=== PATIENT | female | born 1980 | race Caucasian/White ===

== ENCOUNTER 2017-01-02 17:03 | Inpatient (IN) | payer BC ==
[2017-01-02] MEDS ORDERED: Labetalol IV* 5 MG/ML 20 ML VIAL ONE (17:26)
[2017-01-02] MEDS ORDERED: Labetalol IV* 5 MG/ML 20 ML VIAL IV PUSH ONE (17:31)
[2017-01-02] MEDS ORDERED: Labetalol IV* 200 MG in NS 0.9% 250 ML* 160 ML IVPB ONE (17:31)
[2017-01-02 17:53] LABS: Hematocrit 46 % (35-47); Hemoglobin 15.9 g/dl (12.0-16.0); Mean Corpuscular HGB Conc 34 g/dl (31-36); Mean Corpuscular Hemoglobin 34 pg (27-31); Mean Corpuscular Volume 99 fL (80-97); Mean Platelet Volume 9 um3 (7.4-10.4); Red Blood Count 4.68 10^6/ul (4.0-5.4); Red Cell Distribution Width 14 % (10.5-15); White Blood Count 12.2 10^3/ul (3.5-10.8)
[2017-01-02 18:10] LABS: ALT 18 U/L (7-52); AST 24 U/L (13-39); Albumin 4.3 g/dL (3.2-5.2); Alkaline Phosphatase 74 U/L (34-104); Anion Gap 9 mmol/L (2-11); BUN/Creatinine Ratio 10.2 (8-20); Blood Urea Nitrogen 16 mg/dL (6-24); CO2 Carbon Dioxide 27 mmol/L (22-32); Calcium 9.2 mg/dL (8.6-10.3); Chloride 101 mmol/L (101-111); EGFR African American 47.7 (>60); EGFR Non-African American 37.1 (>60); Glucose 98 mg/dL (70-100); Sodium 137 mmol/L (133-145); Total Protein 7.3 g/dL (6.4-8.9)
[2017-01-02] MEDS ORDERED: Potassium Chloride LIQUID* 20 MEQ PACKET PO ONE (18:20)
[2017-01-02 18:32] LABS: T4 6.21 mcg/mL (6.09-12.23)
[2017-01-02 18:33] LABS: TSH (Thyroid Stimulating Horm) 4.05 mcIU/mL (0.34-5.60)
--- NOTE | 2017-01-02 18:33 | RAD ---
INDICATION: Hypertensive crisis COMPARISON: None. TECHNIQUE: Single AP portable view of the chest was obtained. FINDINGS: Image quality is compromised due to the relative inferiority of a portable chest x-ray. The heart and mediastinum exhibit normal size and contour. The lungs are grossly clear. There is no evidence of a large pleural effusion. Visualized bones are normal for the patient's age. IMPRESSION: No radiographic evidence for acute cardiopulmonary abnormality on this portable chest x-ray.
[2017-01-02] MEDS ORDERED: Acetaminophen TAB* 325 MG PO PRN ×2 (18:35→19:53)
[2017-01-02] MEDS ORDERED: Ondansetron INJ* 2 MG/ML VIAL IV PRN (18:35)
[2017-01-02 19:23] LABS: Troponin I 0.07 ng/mL (<0.04)
[2017-01-02] MEDS ORDERED: amLODIPine TAB* 5 MG PO ONE (20:21)
[2017-01-02] MEDS ORDERED: Metoprolol Tartrate TAB* 25 MG PO SCH (21:00)
--- NOTE | 2017-01-02 21:16 | HP ---
CC: Dr. Mcallister * HOSPITAL MEDICINE HISTORY AND PHYSICAL: DATE OF ADMISSION: 01/02/17 PRIMARY CARE PHYSICIAN: Dr. Mcallister. ATTENDING PHYSICIAN: Dr. Cody Mcbride * (dictation provided by Huong Landa NP ). CHIEF COMPLAINT: Visual changes and elevated blood pressure. HISTORY OF PRESENT ILLNESS: Ms. Summers is a 36-year-old female with no known past medical history as she does not follow with doctors, who presents today to the hospital from her primary care's office with concern for profoundly elevated blood pressure. Ms. Summers states that she has had deteriorating vision for the past couple of years and has avoided having her eyes checked; however, she recently decided that she should get new glasses and had scheduled an appointment. In the intervening time over the past 2 to 3 days, she has noticed more profound vision impairment with floaters in both eyes and a red spot in her left eye. She saw an opthamologist or building repair maintenance supervisor on Saturday and was told her that she had retinal hemorrhages and was strongly encouraged to immediately follow up with a primary care physician. The patient was arranged to see Dr. Mcallister today and while there she had dramatically elevated blood pressure at 240/180. At that point, she was complaining of a headache and she was transitioned to [facility] Emergency Room. In the emergency room, her blood pressure was 238/182 with heart rate running in the 80s. At this point, she is asymptomatic and is denying headache. She denies any other symptoms. She has had no unusual sweating or palpitations. She has had no chest pain. No shortness of breath. No cough. No nausea, no vomiting or abdominal pain. She confirms that she could easily ambulate up a flight of stairs. She does not exercise regularly. She is a chronic smoker, smoking 1 pack per day. She does not know of any history of significant hypertension or kidney disease in her family. PAST MEDICAL HISTORY: None. MEDICATIONS: None. ALLERGIES: None. FAMILY HISTORY: The patient again reports no history of hypertension, diabetes or kidney disease in the family. SOCIAL HISTORY: The patient is a pack-a-day smoker and has been for some time. She drinks alcohol on a daily basis. She said she has never had trouble with alcohol withdrawal. There is no report of drug use. She states that her friend , Saray, would be her healthcare proxy. REVIEW OF SYSTEMS: A 14-point review of systems was completed with Ms. Summers , and all those not mentioned above were negative. PHYSICAL EXAMINATION GENERAL: Ms. Summers is lying in the bed. She is in no acute distress. VITAL SIGNS: Temperature 97, heart rate 88, respiratory rate 19, O2 saturation 98% on room air, blood pressure 240/156. HEENT: Pupils equal and reactive. Retinal hemorrhage noted in left eye. Neck supple, no thyromegaly. LUNGS: Clear to auscultation bilaterally with no accessory muscle use and good aeration. HEART: S1, S2. No murmur, rub, or gallop, and regular. ABDOMEN: Soft, nontender with bowel sounds positive x4. EXTREMITIES: No cyanosis or edema. NEURO: She is alert. She is oriented x3. She moves all extremities equally. There is no facial asymmetry or focal weakness. Her extraocular movements are intact. SKIN: Intact. DIAGNOSTIC STUDIES/LAB DATA: WBC 12.2, hemoglobin 15.9, hematocrit 46, and platelet count 129. Sodium 137, potassium 3.0, chloride 101, serum bicarbonate 27, BUN 16, creatinine 1.57, glucose 98. Troponin 0.07. Beta HCG less than 0.6. TSH 4.05. Chest x-ray shows no acute process. EKG shows heart rate in the 80s with a sinus rhythm and no evidence of current ischemia; however, she she does have Q waves in II, III, aVF, and in the V2 and V3. ASSESSMENT AND PLAN: Ms. Summers is a 36-year-old female with no known past medical history as she has not followed regularly with medical care presents to the hospital with dramatically elevated blood pressure of 280/180 at her primary care's office, and retinal hemorrhages and headache. Plans are for inpatient admission for hypertensive emergency and plan is as follows: 1. Hypertensive emergency. The patient has been started on labetalol in the emergency room. We will continue to titrate that as needed to control her blood pressure. Goal is to have her blood pressure running about 180 through the evening. Plan to start an oral medication regimen with amlodipine. In terms of determining the etiology of her hypertension, I plan to order a renal artery ultrasound though this may be deferred to the outpatient setting. I do not suspect pheochromocytoma based on patient's denial of symptoms of palpitations or unusual episodes of diaphoresis. 2. Elevated troponin. I suspect this is secondary to her dramatically elevated blood pressure. I am concerned that she has Q waves noted on her EKG. Plan for transthoracic echocardiogram for tomorrow. The patient is chest pain free at this time. She will have repeat troponins and telemetry monitoring as well. 3. Elevated creatinine. The patient's creatinine is 1.57. I suspect that she has an element of chronic kidney disease. Plan to recheck creatinine tomorrow. 4. DVT prophylaxis. With early mobility. 5. Disposition. To intensive care unit. 6. Code status is full code. TIME SPENT: Approximately 60 minutes was spent on admission of this patient; more than half time was spent with the patient at the bedside reviewing the events leading up to this hospitalization, performing the physical examination, and reviewing the plan of care. HUONG LANDA NP [id number]/[facility] #: [id number] RUBY
[2017-01-03 05:04] LABS: Urine Bacteria 1+ (Absent); Urine Bilirubin Negative (Negative); Urine Glucose 1+(50 mg/dL) (Negative); Urine Nitrite Negative (Negative)
[2017-01-03 05:41] LABS: BUN/Creatinine Ratio 9.5 (8-20); Calcium 8.4 mg/dL (8.6-10.3); EGFR African American 51.4 (>60); Potassium 3.5 mmol/L (3.5-5.0)
[2017-01-03 05:44] LABS: Troponin I 0.06 ng/mL (<0.04)
[2017-01-03] MEDS ORDERED: Levothyroxine TAB* 75 MCG TAB PO SCH (06:00)
[2017-01-03] MEDS ORDERED: Aspirin EC Low Dose* 81 MG TAB.EC PO SCH (09:00)
[2017-01-03] MEDS ORDERED: Cholecalciferol TAB* 1000 UNITS PO SCH (09:00)
[2017-01-03] MEDS: amLODIPine TAB* 5 MG PO SCH (09:10)
--- NOTE | 2017-01-03 10:52 | ECHO ---
Patient: EDDIE TAYLOR [facility] Rec#: [id number] : 1980 Date: 01/03/2017 Age: 36y Height: 160 cm / 63.0 in Weight: 75 kg / 165.3 lbs Sex: F BSA: 1.78 Room#: ICU 5 Admit Date#: 01/02/2017 Type: Inpatient Referring: Huong Landa NP Reading: Parmjit Luis MD Lead Printer: Chasity Nelson RN RDCS CC: Yana Mcallister MD Transthoracic Echocardiogram Indication: Hypertensive crisis, abnormal EKG BP: 161/109 HR: 71 Rhythm: NSR Findings History: Smoker, retinal hemorrhages Technical Comments: The study is technically limited due to patient body habitus. The study is technically limited due to the patient's smoking history. Left Ventricle: The left ventricular chamber size is normal. Severe concentric left ventricular hypertrophy is observed. Global left ventricular wall motion and contractility are within normal limits.(possible subtle hypokinesis of the inferior wall in the apical views but not seen elsewhere; may be artifactual due to suboptimal imaging). There is normal left ventricular systolic function. The estimated ejection fraction is 60-65%. The left ventricular diastolic filling pattern is consistent with pseudonormalization. Left Atrium: The left atrium is mildly dilated. Right Ventricle: The right ventricular chamber size and systolic function are within normal limits. Right Atrium: The right atrium is mildly dilated. Aortic Valve: The aortic valve is trileaflet. There is a trace of aortic regurgitation. There is no evidence of aortic stenosis. Mitral Valve: The mitral valve leaflets are mildly thickened. There is trace to mild mitral regurgitation. There is no evidence of mitral stenosis. Tricuspid Valve: The tricuspid valve leaflets are normal. There is trace to mild tricuspid regurgitation. Unable to estimate the right ventricular systolic pressure. Pulmonic Valve: The pulmonic valve appears normal. There is a trace pulmonic regurgitation. There is no pulmonic stenosis. Pericardium: There is no significant pericardial effusion. A pericardial fat pad is visualized. Aorta: There is no dilatation of the ascending aorta. There is no dilatation of the aortic arch. There is no dilation of the aortic root. Pulmonary Artery: The main pulmonary artery appears normal. Venous: The inferior vena cava appears normal in size. There is a greater than 50% respiratory change in the inferior vena cava dimension. Summary: There was not any prior study for comparison. Conclusions The study is technically limited due to patient body habitus. Severe concentric left ventricular hypertrophy is observed. The estimated ejection fraction is 60-65%. (possible subtle hypokinesis of the inferior wall in the apical views but not seen elsewhere; may be artifactual due to suboptimal imaging). The left ventricular diastolic filling pattern is consistent with pseudonormalization. The left atrium is mildly dilated. The aortic valve leaflets are mildly thickened. There is a trace of aortic regurgitation. There is trace to mild mitral regurgitation. There is trace to mild tricuspid regurgitation. Measurements Name Value Normal Range RVIDd (AP) 2D 2 cm (0.9 - 2.6) RVDdMajor (2D) 2.3 cm (2.2 - 4.4) RAd ISD 4CH 5.3 cm (3.4 - 4.9) RA (A4C)W 3.5 cm (2.9 - 4.6) IVSd (2D) 1.8 cm (0.6 - 1) LVPWd (2D) 1.8 cm (0.6 - 1) LVIDd (2D) 3.9 cm (3.6 - 5.4) LVIDs (2D) 2.6 cm - LV FS (2D) 33 % (25 - 45) Aortic Annulus 2.2 cm (1.4 - 2.6) Ao root diameter (2D) 3.2 cm (2.1 - 3.5) Ascending Ao 3.3 cm (2.1 - 3.4) Aortic arch 2.2 cm (1.8 - 3.4) LA dimension (AP) 2D 4.4 cm (2.3 - 3.8) LAd ISD 4CH 5.8 cm (2.9 - 5.3) LA ISD 4CH W 4.3 cm (2.5 - 4.5) Name Value Normal Range LA ESV SP 4CH (A/L) 56 ml - LA ESV SP 2CH (A/L) 64 ml - LA ESV BP (A/L) 65 ml - LA ESV BP (A/L) index 37 ml/m2 - LA ESV SP 4CH (MOD) 54 ml - LA ESV SP 2CH (MOD) 61 ml - Name Value Normal Range MV E-wave Vmax 0.67 m/sec - MV deceleration time 253 msec - MV A-wave Vmax 0.49 m/sec - MV E:A ratio 1.4 ratio - LV septal e' Vmax 0.05 m/sec - LV lateral e' Vmax 0.05 m/sec - LV E:e' septal ratio 13.4 ratio - LV E:e' lateral ratio 13.4 ratio - Name Value Normal Range AV Vmax 1.4 m/sec - AV VTI 27.4 cm - AV peak gradient 8 mmHg - AV mean gradient 5 mmHg - LVOT Vmax 1.3 m/sec - LVOT VTI 20.1 cm - LVOT peak gradient 4 mmHg - LVOT mean gradient 2.5 mmHg - NORBERTO Vmax 0.8 m/sec - Name Value Normal Range IVC diameter 1.9 cm - Name Value Normal Range PV Vmax 0.78 m/sec -
--- NOTE | 2017-01-03 11:28 | PN ---
Subjective Date of Service: 01/03/17 Interval History: Patient seen this morning. Reports feeling better overall. Still with some vision changes ("squiggles"), no chest pain, SOB. Dull headache. Overnight had 2 episodes of L facial and arm tingling that lasted a few minutes, associated with lower BPs. No recurrence since. Family History: Unchanged from Admission Social History: Unchanged from Admission Past Medical History: Unchanged from Admission Objective Active Medications: Acetaminophen (Tylenol Tab*) 650 mg PO Q4H PRN PRN Reason: PAIN Last Admin: 01/02/17 23:59 Dose: 650 mg Amlodipine Besylate (Norvasc Tab*) 5 mg PO DAILY AARON Last Admin: 01/03/17 09:10 Dose: 5 mg Labetalol HCl 200 mg/ Sodium (Chloride) 200 mls @ 30 mls/hr IVPB ONCE ONE PRN Reason: 0.5 MG/MIN Stop: 01/04/17 03:25 Ondansetron HCl (Zofran Inj*) 4 mg IV Q6H PRN PRN Reason: NAUSEA Vital Signs 01/02/17 01/02/17 01/02/17 18:30 19:00 19:30 Temperature Pulse Rate 88 85 86 Respiratory 19 18 16 Rate Blood Pressure 240/156 214/150 206/150 (mmHg) O2 Sat by Pulse 98 98 98 Oximetry 01/03/17 01/03/17 01/03/17 04:00 04:01 04:30 Temperature Pulse Rate 62 65 75 Respiratory 16 17 19 Rate Blood Pressure 132/85 140/98 (mmHg) O2 Sat by Pulse 96 95 96 Oximetry 01/03/17 01/03/17 11:00 11:01 Temperature Pulse Rate 68 68 Respiratory 12 9 Rate Blood Pressure 185/122 (mmHg) O2 Sat by Pulse 97 96 Oximetry Oxygen Devices in Use Now: None Appearance: Young, F, laying in bed in NAD Eyes: No Scleral Icterus Ears/Nose/Mouth/Throat: Mucous Membranes Moist Neck: NL Appearance and Movements; NL JVP Respiratory: Symmetrical Chest Expansion and Respiratory Effort, Clear to Auscultation Cardiovascular: NL Sounds; No Murmurs; No JVD, RRR Abdominal: NL Sounds; No Tenderness; No Distention Lymphatic: No Cervical Adenopathy Extremities: No Edema Skin: No Rash or Ulcers Neurological: Alert and Oriented x 3 Result Diagrams: 01/02/17 17:25 01/03/17 05:10 Microbiology and Other Data: Microbiology 01/02/17 20:10 Nasal Screen MRSA (PCR)(EKATERINA) - Final Nasal Mrsa Negative Assess/Plan/Problems-Billing Assessment: Hypertensive emergency in a 36 yo F - Patient Problems (1) Hypertensive emergency Current Visit: Yes Comment: Goal BP ~ 180-190/100-110 by this evening. Off of Labtelol gtt, on oral Amlodipine 5 mg daily. Had some neuro symptoms with lower BPs overnight. Will check head CT. Echo showed severe LVH, no clear WMAs. Mild troponinemia trending down. (2) Renal dysfunction Current Visit: Yes Comment: Creatinine elevated, may be result of chronic untreated HTN. (3) DVT prophylaxis Current Visit: Yes Comment: SCDs Status and Disposition: Inpatient for close BP monitoring
--- NOTE | 2017-01-03 12:43 | RAD ---
HISTORY: Hypertensive emergency, headache, question stroke COMPARISONS: None TECHNIQUE: Multiple contiguous axial CT scans were obtained of the head without intravenous contrast. FINDINGS: HEMORRHAGE/INFARCT: There is no hemorrhage or acute infarct. MASSES/SHIFT: There is no mass or shift. EXTRA-AXIAL SPACES: There are no extra-axial fluid collections. SULCI AND VENTRICLES: The sulci and ventricles are normal in size and position for the patient's stated age. CEREBRUM: There are no focal parenchymal abnormalities. BRAINSTEM: There are no focal parenchymal abnormalities. CEREBELLUM: There are no focal parenchymal abnormalities. VESSELS: The vessels are grossly normal. PARANASAL SINUSES: The paranasal sinuses are clear. ORBITS: The orbits are unremarkable. BONES AND SOFT TISSUE: No bone or soft tissue abnormalities are noted. OTHER: None IMPRESSION: NO ACUTE INTRACRANIAL PATHOLOGY.
--- NOTE | 2017-01-03 16:06 | ED ---
Cathleen Reid Alfonso, scribed for Fernandez Valencia MD on 01/02/17 at 1802 . Complex/Multi-Sys Presentation - HPI Summary HPI Summary: This patient is a 36 year old F presenting to [facility] referred from her PCP for a hypertensive crisis noted earlier today. The patient rates the aching pain 4/10 in severity. Symptoms aggravated and alleviated by nothing. Patient reports worsening eye sight (over the last two years), orange spot in vision (3 days ago ), and a headache. Patient denies CP, SOB, tiredness, and hot flashes. She reports not consulting a primary care physician in many years. She reports yesterday an inbound call center representative diagnosed her with retinal hemorrhages. Tobacco abuse disorder (/ PPD). - History Of Current Complaint Chief Complaint: EDHypertension Time Seen by Provider: 01/02/17 17:31 Hx Obtained From: Patient Onset/Duration: Sudden Onset, Lasting Days - Noted earlier today, Still Present Timing: Constant Severity Currently: Moderate Severity Initially: Moderate Character: Dull - Aching Aggravating Factor(s): Nothing Alleviating Factor(s): Nothing Associated Signs And Symptoms: Positive: Other - Patient reports worsening eye sight (over the last two years), orange spot in vision (3 days ago), and a headache. Patient denies CP, SOB, tiredness, and hot flashes. - Allergies/Home Medications Allergies/Adverse Reactions: Allergies Allergy/AdvReac Type Severity Reaction Status Date / Time No Known Allergies Allergy Verified 01/02/17 17:46 PMH/Surg Hx/FS Hx/Imm Hx Sensory History: Reports: Other Sensory Impairments - retinal hemorrhages Denies: Hx Deafness Opthamlomology History: Denies: Hx Legally Blind Infectious Disease History: No Infectious Disease History: Denies: Traveled Outside the [place] in Last 30 Days - Family History Known Family History: Negative: Cardiac Disease - Social History Alcohol Use: Occasionally Substance Use Type: Reports: None Smoking Status (MU): Current Every Day Smoker - 1/2 PPD Review of Systems Positive: Other - Negative hot flashes. Positive: Other - Positive worsening eye sight (over the last two years), orange spot in vision (3 days ago) Positive: Other - Positive hypertensive crisis. Negative: Chest Pain Negative: Shortness Of Breath Neurological: Other - Positive headache; negative tiredness All Other Systems Reviewed And Are Negative: Yes Physical Exam - Summary Physical Exam Summary: VITAL SIGNS: Reviewed. GENERAL: Patient is a well-developed and nourished female who is lying comfortable in the stretcher. Patient is not in any acute respiratory distress. HEAD AND FACE: No signs of trauma. No ecchymosis, hematomas or skull depressions. No sinus tenderness. EYES: PERRLA, EOMI x 2, No injected conjunctiva, no nystagmus. Fundoscopic exam : left eye retinal hemorrhage. EARS: Hearing grossly intact. Ear canals and tympanic membranes are within normal limits. MOUTH: Oropharynx within normal limits. NECK: Supple, trachea is midline, no adenopathy, no JVD, no carotid bruit, no c- spine tenderness, neck with full ROM. CHEST: Symmetric, no tenderness at palpation LUNGS: Clear to auscultation bilaterally. No wheezing or crackles. CVS: Regular rate and rhythm, S1 and S2 present, no murmurs or gallops appreciated. ABDOMEN: Soft, non-tender. No signs of distention. No rebound no guarding, and no masses palpated. Bowel sounds are normal. EXTREMITIES: FROM in all major joints, no edema, no cyanosis or clubbing. NEURO: Alert and oriented x 3. No acute neurological deficits. Speech is normal and follows commands. SKIN: Dry and warm Triage Information Reviewed: Yes Vital Signs On Initial Exam: Initial Vitals Temp Pulse Resp BP Pulse Ox 97 F 90 17 238/182 98 01/02/17 17:08 01/02/17 17:08 01/02/17 17:08 01/02/17 17:08 01/02/17 17:08 Vital Signs Reviewed: Yes - Mic Coma Scale Coma Scale Total: 15 Diagnostics - Vital Signs Vital Signs Temp Pulse Resp BP Pulse Ox 01/02/17 17:48 86 01/02/17 17:42 97 F 100 13 270/174 98 01/02/17 17:08 97 F 90 17 238/182 98 - Laboratory Lab Results: Lab Results 01/02/17 01/02/17 01/02/17 Range/Units 04:55 17:25 17:25 WBC 12.2 H (3.5-10.8) 10^3/ul RBC 4.68 (4.0-5.4) 10^6/ul Hgb 15.9 (12.0-16.0) g/dl Hct 46 (35-47) % MCV 99 H (80-97) fL MCH 34 H (27-31) pg MCHC 34 (31-36) g/dl RDW 14 (10.5-15) % Plt Count 129 L (150-450) 10^3/ul MPV 9 (7.4-10.4) um3 Neut % (Auto) 72.8 (38-83) % Lymph % (Auto) 19.7 L (25-47) % Liberty % (Auto) 6.4 (1-9) % Eos % (Auto) 0.7 (0-6) % Baso % (Auto) 0.4 (0-2) % Absolute Neuts (auto) 8.9 H (1.5-7.7) 10^3/ul Absolute Lymphs (auto) 2.4 (1.0-4.8) 10^3/ul Absolute Monos (auto) 0.8 (0-0.8) 10^3/ul Absolute Eos (auto) 0.1 (0-0.6) 10^3/ul Absolute Basos (auto) 0.1 (0-0.2) 10^3/ul Absolute Nucleated RBC 0.05 10^3/ul Nucleated RBC % 0.4 Sodium 137 (133-145) mmol/L Potassium 3.0 L (3.5-5.0) mmol/L Chloride 101 (101-111) mmol/L Carbon Dioxide 27 (22-32) mmol/L Anion Gap 9 (2-11) mmol/L BUN 16 (6-24) mg/dL Creatinine 1.57 H (0.51-0.95) mg/dL Est GFR ( Amer) 47.7 (>60) Est GFR (Non-Af Amer) 37.1 (>60) BUN/Creatinine Ratio 10.2 (8-20) Glucose 98 (70-100) mg/dL Lactic Acid (0.5-2.0) mmol/L Calcium 9.2 (8.6-10.3) mg/dL Magnesium 2.0 (1.9-2.7) mg/dL Total Bilirubin 1.10 H (0.2-1.0) mg/dL AST 24 (13-39) U/L ALT 18 (7-52) U/L Alkaline Phosphatase 74 (34-104) U/L Troponin I 0.07 H* (<0.04) ng/mL Total Protein 7.3 (6.4-8.9) g/dL Albumin 4.3 (3.2-5.2) g/dL Globulin 3.0 (2-4) g/dL Albumin/Globulin Ratio 1.4 (1-3) TSH 4.05 (0.34-5.60) mcIU/mL Thyroxine (T4) 6.21 (6.09-12.23) mcg/mL Beta HCG, Quant < 0.60 mIU/mL Urine Color Yellow Urine Appearance Cloudy Urine pH 6.0 (5-9) Ur Specific [facility] 1.017 (1.010-1.030) Urine Protein 2+(100 mg/dl) H (Negative) Urine Ketones Negative (Negative) Urine Blood Negative (Negative) Urine Nitrate Negative (Negative) Urine Bilirubin Negative (Negative) Urine Urobilinogen Negative (Negative) Ur Leukocyte Esterase Negative (Negative) Urine WBC (Auto) Trace(0-5/hpf) (Absent) Urine RBC (Auto) Trace(0-2/hpf) (Absent) Ur Squamous Epith Cells Present H (Absent) Urine Bacteria 1+ H (Absent) Urine Glucose 1+(50 mg/dl) H (Negative) 01/02/17 Range/Units 17:25 WBC (3.5-10.8) 10^3/ul RBC (4.0-5.4) 10^6/ul Hgb (12.0-16.0) g/dl Hct (35-47) % MCV (80-97) fL MCH (27-31) pg MCHC (31-36) g/dl RDW (10.5-15) % Plt Count (150-450) 10^3/ul MPV (7.4-10.4) um3 Neut % (Auto) (38-83) % Lymph % (Auto) (25-47) % Liberty % (Auto) (1-9) % Eos % (Auto) (0-6) % Baso % (Auto) (0-2) % Absolute Neuts (auto) (1.5-7.7) 10^3/ul Absolute Lymphs (auto) (1.0-4.8) 10^3/ul Absolute Monos (auto) (0-0.8) 10^3/ul Absolute Eos (auto) (0-0.6) 10^3/ul Absolute Basos (auto) (0-0.2) 10^3/ul Absolute Nucleated RBC 10^3/ul Nucleated RBC % Sodium (133-145) mmol/L Potassium (3.5-5.0) mmol/L Chloride (101-111) mmol/L Carbon Dioxide (22-32) mmol/L Anion Gap (2-11) mmol/L BUN (6-24) mg/dL Creatinine (0.51-0.95) mg/dL Est GFR ( Amer) (>60) Est GFR (Non-Af Amer) (>60) BUN/Creatinine Ratio (8-20) Glucose (70-100) mg/dL Lactic Acid 0.8 (0.5-2.0) mmol/L Calcium (8.6-10.3) mg/dL Magnesium (1.9-2.7) mg/dL Total Bilirubin (0.2-1.0) mg/dL AST (13-39) U/L ALT (7-52) U/L Alkaline Phosphatase (34-104) U/L Troponin I (<0.04) ng/mL Total Protein (6.4-8.9) g/dL Albumin (3.2-5.2) g/dL Globulin (2-4) g/dL Albumin/Globulin Ratio (1-3) TSH (0.34-5.60) mcIU/mL Thyroxine (T4) (6.09-12.23) mcg/mL Beta HCG, Quant mIU/mL Urine Color Urine Appearance Urine pH (5-9) Ur Specific [facility] (1.010-1.030) Urine Protein (Negative) Urine Ketones (Negative) Urine Blood (Negative) Urine Nitrate (Negative) Urine Bilirubin (Negative) Urine Urobilinogen (Negative) Ur Leukocyte Esterase (Negative) Urine WBC (Auto) (Absent) Urine RBC (Auto) (Absent) Ur Squamous Epith Cells (Absent) Urine Bacteria (Absent) Urine Glucose (Negative) Result Diagrams: 01/02/17 17:25 01/03/17 05:10 Lab Statement: Any lab studies that have been ordered have been reviewed, and results considered in the medical decision making process. - Radiology CXR Radiology Interpretation Completed By: Radiologist - No radiographic evidence for acute cardiopulmonary abnormality on this portable chest x-ray. - EKG 1719 Cardiac Rate: NL - BPM 98 EKG Rhythm: Sinus Rhythm ST Segment: Normal Complex Multi-Symp Course/Dx Course Of Treatment: This patient is a 36 year old F presenting to [facility] referred from her PCP for a hypertensive crisis noted earlier today. The patient rates the aching pain 4/10 in severity. Symptoms aggravated and alleviated by nothing. Patient reports worsening eye sight (over the last two years), orange spot in vision (3 days ago), and a headache. Patient denies CP, SOB, tiredness, and hot flashes. She reports not consulting a primary care physician in many years. She reports yesterday an inbound call center representative diagnosed her with retinal hemorrhages. Tobacco abuse disorder (/2 PPD). Assessment/Plan: Test results show a WBC of 12.2, potassium of 3, for which the patient was given potassium chloride, and troponin of 0.07. In the ED course the patient was given Labetalol bolus and placed on a Labetalol drip. Therefore , at this time I discussed the case with Dr. Colby who will be admitting the patient to her services for further work up and management. The patient is alert and oriented to person, place, and time. - Diagnoses Provider Diagnoses: Hypertensive urgency, rule out acute coronary syndrome - Physician Notifications Discussed Care Of Patient With: Cody Mcbride Time Discussed With Above Provider: 17:40 Instructed by Provider To: Other - Consulted Dr. Mcbride (hospitalist) at 1740 about the patient's condition. At 1826 Dr. Colby (hospitalist) agrees to admit. Discharge - Discharge Plan Condition: Stable Disposition: ADMITTED TO [facility] documentation as recorded by the Cathleen mcallister Alfonso accurately reflects the service I personally performed and the decisions made by me, Fernandez Valencia MD.
[2017-01-03] MEDS ORDERED: Labetalol IV* 200 MG in NS 0.9% 250 ML* 160 ML IVPB ONE (20:46)
[2017-01-03] MEDS ORDERED: amLODIPine TAB* 5 MG PO ONE (22:25)
[2017-01-03] MEDS ORDERED: Metoprolol Tartrate IV* 1 MG/ML 5 ML VIAL IV ONE (22:25)
[2017-01-04] MEDS: Lisinopril TAB* 10 MG PO SCH ×2 (07:59→11:29)
[2017-01-04] MEDS: amLODIPine TAB* 5 MG PO SCH (07:59)
[2017-01-04 08:46] LABS: BUN/Creatinine Ratio 7.7 (8-20); Calcium 8.6 mg/dL (8.6-10.3); EGFR African American 53.5 (>60); EGFR Non-African American 41.6 (>60); Potassium 3.8 mmol/L (3.5-5.0)
--- NOTE | 2017-01-04 10:51 | PN ---
Subjective Date of Service: 01/04/17 Interval History: Had SBP>200 overnight, received additional Norvasc and 5 mg metoprolol IV. Patient seen this morning. Reports some slight light-headedness this AM while sitting but otherwise no new complaints. Headache resolved. Floater still present. Parents at bedside, answered all of their questions. Father has hx of HTN, CAD, DC. Family History: Unchanged from Admission Social History: Unchanged from Admission Past Medical History: Unchanged from Admission Objective Active Medications: Acetaminophen (Tylenol Tab*) 650 mg PO Q4H PRN Amlodipine Besylate (Norvasc Tab*) 5 mg PO DAILY [facility] Lisinopril (Prinivil Tab*) 10 mg PO DAILY [facility] Ondansetron HCl (Zofran Inj*) 4 mg IV Q6H PRN Vital Signs 01/03/17 01/03/17 01/03/17 11:00 11:01 11:30 Temperature Pulse Rate 68 68 72 Respiratory 12 9 15 Rate Blood Pressure 185/122 185/119 (mmHg) O2 Sat by Pulse 97 96 98 Oximetry 01/03/17 01/03/17 01/03/17 11:35 12:00 12:01 Temperature 97.7 F Pulse Rate 72 79 Respiratory 23 20 Rate Blood Pressure 170/116 (mmHg) O2 Sat by Pulse 96 98 Oximetry 01/03/17 01/03/17 01/03/17 12:02 12:30 13:00 Temperature Pulse Rate 73 69 77 Respiratory 17 13 18 Rate Blood Pressure 168/116 157/123 163/116 (mmHg) O2 Sat by Pulse 96 97 96 Oximetry 01/03/17 01/03/17 01/03/17 13:01 13:30 14:00 Temperature Pulse Rate 84 73 80 Respiratory 17 19 21 Rate Blood Pressure 156/107 157/110 (mmHg) O2 Sat by Pulse 96 95 96 Oximetry 01/03/17 01/03/17 01/03/17 14:01 14:17 14:30 Temperature Pulse Rate 77 81 84 Respiratory 12 23 21 Rate Blood Pressure 179/124 176/110 (mmHg) O2 Sat by Pulse 97 97 98 Oximetry 01/03/17 01/03/17 01/03/17 15:00 15:30 15:41 Temperature 98.7 F Pulse Rate 81 82 Respiratory 16 21 Rate Blood Pressure 159/105 141/85 (mmHg) O2 Sat by Pulse 98 99 Oximetry 01/03/17 01/03/17 01/03/17 16:00 16:01 17:00 Temperature Pulse Rate 74 75 81 Respiratory 12 14 21 Rate Blood Pressure 160/119 (mmHg) O2 Sat by Pulse 96 97 97 Oximetry 01/03/17 01/03/17 01/03/17 17:30 18:00 18:01 Temperature Pulse Rate 78 85 91 Respiratory 23 20 18 Rate Blood Pressure 182/130 200/145 (mmHg) O2 Sat by Pulse 97 97 97 Oximetry 01/03/17 01/03/17 01/03/17 18:13 18:25 18:30 Temperature Pulse Rate 80 80 80 Respiratory 18 21 15 Rate Blood Pressure 198/139 194/138 187/132 (mmHg) O2 Sat by Pulse 95 96 97 Oximetry 01/03/17 01/03/17 01/03/17 19:00 19:01 19:30 Temperature Pulse Rate 83 83 85 Respiratory 6 9 23 Rate Blood Pressure 188/129 185/128 (mmHg) O2 Sat by Pulse 97 96 98 Oximetry 01/03/17 01/03/17 01/03/17 20:00 20:01 20:30 Temperature 99.1 F Pulse Rate 89 94 87 Respiratory 12 20 20 Rate Blood Pressure 205/146 207/136 (mmHg) O2 Sat by Pulse 95 95 96 Oximetry 01/03/17 01/03/17 01/03/17 20:34 21:00 21:01 Temperature Pulse Rate 84 80 83 Respiratory 20 22 19 Rate Blood Pressure 193/127 191/129 (mmHg) O2 Sat by Pulse 96 96 95 Oximetry 01/03/17 01/03/17 01/03/17 21:30 21:43 21:44 Temperature Pulse Rate 78 Respiratory 16 17 19 Rate Blood Pressure 183/127 220/134 219/142 (mmHg) O2 Sat by Pulse 96 Oximetry 01/03/17 01/03/17 01/03/17 22:00 22:01 22:34 Temperature Pulse Rate 79 80 70 Respiratory 14 14 17 Rate Blood Pressure 202/130 160/103 (mmHg) O2 Sat by Pulse 97 98 96 Oximetry 01/03/17 01/03/17 01/03/17 22:35 22:43 22:48 Temperature Pulse Rate 79 77 74 Respiratory 15 17 17 Rate Blood Pressure 178/124 191/127 181/126 (mmHg) O2 Sat by Pulse 96 96 94 Oximetry 01/03/17 01/03/17 01/03/17 23:00 23:01 23:23 Temperature Pulse Rate 68 70 82 Respiratory 14 15 23 Rate Blood Pressure 192/112 (mmHg) O2 Sat by Pulse 96 96 93 Oximetry 01/03/17 01/03/17 01/04/17 23:43 23:47 00:00 Temperature 99.2 F Pulse Rate 70 Respiratory 19 13 Rate Blood Pressure 165/120 (mmHg) O2 Sat by Pulse 96 Oximetry 01/04/17 01/04/17 01/04/17 00:01 01:00 01:01 Temperature Pulse Rate 68 75 70 Respiratory 17 13 23 Rate Blood Pressure 176/121 (mmHg) O2 Sat by Pulse 91 94 95 Oximetry 01/04/17 01/04/17 01/04/17 01:47 02:00 02:01 Temperature Pulse Rate 71 71 69 Respiratory 19 20 19 Rate Blood Pressure 174/117 173/118 (mmHg) O2 Sat by Pulse 93 93 92 Oximetry 01/04/17 01/04/17 01/04/17 03:00 03:01 03:30 Temperature 98.2 F Pulse Rate 68 68 Respiratory 12 19 20 Rate Blood Pressure 184/131 (mmHg) O2 Sat by Pulse 96 93 Oximetry 01/04/17 01/04/17 01/04/17 04:00 04:01 04:53 Temperature Pulse Rate 72 67 Respiratory 17 15 18 Rate Blood Pressure 171/116 (mmHg) O2 Sat by Pulse 93 98 Oximetry 01/04/17 01/04/17 01/04/17 05:00 05:01 05:04 Temperature Pulse Rate 74 72 74 Respiratory 24 25 33 Rate Blood Pressure 201/125 171/120 (mmHg) O2 Sat by Pulse 91 96 94 Oximetry 01/04/17 01/04/17 01/04/17 06:00 06:41 07:00 Temperature Pulse Rate 72 71 Respiratory 18 21 19 Rate Blood Pressure 168/129 183/133 (mmHg) O2 Sat by Pulse 91 96 Oximetry 01/04/17 01/04/17 01/04/17 07:01 07:23 07:33 Temperature 98.1 F Pulse Rate 69 Respiratory 15 18 Rate Blood Pressure (mmHg) O2 Sat by Pulse 94 Oximetry 01/04/17 01/04/17 01/04/17 08:00 09:00 09:01 Temperature Pulse Rate 80 79 84 Respiratory 17 19 17 Rate Blood Pressure 192/132 202/135 (mmHg) O2 Sat by Pulse 99 99 100 Oximetry 01/04/17 01/04/17 01/04/17 09:03 09:37 10:00 Temperature Pulse Rate 80 86 83 Respiratory 20 19 22 Rate Blood Pressure 205/138 195/141 183/121 (mmHg) O2 Sat by Pulse 99 98 97 Oximetry 01/04/17 01/04/17 10:01 10:30 Temperature Pulse Rate 82 87 Respiratory 21 16 Rate Blood Pressure 173/117 (mmHg) O2 Sat by Pulse 99 96 Oximetry Oxygen Devices in Use Now: None Appearance: Young, F, laying in bed in NAD Eyes: No Scleral Icterus Ears/Nose/Mouth/Throat: Mucous Membranes Moist Neck: NL Appearance and Movements; NL JVP Respiratory: Symmetrical Chest Expansion and Respiratory Effort, Clear to Auscultation Cardiovascular: NL Sounds; No Murmurs; No JVD, RRR Abdominal: NL Sounds; No Tenderness; No Distention Lymphatic: No Cervical Adenopathy Extremities: No Edema Skin: No Rash or Ulcers Neurological: Alert and Oriented x 3 Result Diagrams: 01/02/17 17:25 01/04/17 08:15 Assess/Plan/Problems-Billing Assessment: Hypertensive emergency in a 36 yo F - Patient Problems (1) Hypertensive emergency Current Visit: Yes Comment: BPs remain elevated, patient asymptomatic. Added Lisinopril 10 mg daily in additon to Amlodipine. Will monitor BPs closely over the day today and adjust as needed. Renal US to be done as outpatient. Renin and aldosterone levels checked and pending. Echo showed severe LVH, no clear WMAs. CT head negative. (2) Renal dysfunction Current Visit: Yes Comment: Creatinine elevated, may be result of chronic untreated HTN. Stable. (3) DVT prophylaxis Current Visit: Yes Comment: SCDs Status and Disposition: Inpatient for close BP monitoring
[2017-01-04] MEDS ORDERED: Labetalol IV* 5 MG/ML 20 ML VIAL IV PUSH ONE ×2 (13:22→15:04)
[2017-01-04] MEDS ORDERED: Lisinopril TAB* 10 MG PO ONE (17:00)
[2017-01-04] MEDS ORDERED: amLODIPine TAB* 5 MG PO ONE (17:00)
[2017-01-04] MEDS ORDERED: Labetalol IV* 5 MG/ML 20 ML VIAL IV PUSH PRN (17:07)
[2017-01-04] MEDS: Chlorthalidone TAB* 50 MG PO SCH (19:32)
[2017-01-05 06:32] LABS: Calcium 8.6 mg/dL (8.6-10.3); EGFR African American 52.3 (>60); EGFR Non-African American 40.6 (>60); Potassium 3.7 mmol/L (3.5-5.0)
[2017-01-05] MEDS: Chlorthalidone TAB* 50 MG PO SCH (07:39)
[2017-01-05] MEDS: amLODIPine TAB* 5 MG PO SCH (07:39)
[2017-01-05] MEDS: Lisinopril TAB* 10 MG PO SCH (07:39)
[2017-01-05] MEDS ORDERED: Lisinopril TAB* 10 MG PO ONE ×2 (10:52→17:07)
--- NOTE | 2017-01-05 11:07 | PN ---
Subjective Date of Service: 01/05/17 Interval History: Patient seen this morning. No new complaints. No chest pain, PRATT, SOB. Vision stable. Family History: Unchanged from Admission Social History: Unchanged from Admission Past Medical History: Unchanged from Admission Objective Active Medications: Acetaminophen (Tylenol Tab*) 650 mg PO Q4H PRN PRN Reason: PAIN Last Admin: 01/02/17 23:59 Dose: 650 mg Amlodipine Besylate (Norvasc Tab*) 10 mg PO DAILY [facility] Last Admin: 01/05/17 07:39 Dose: 10 mg Chlorthalidone (Hygroton Tab*) 25 mg PO DAILY [facility] Last Admin: 01/05/17 07:39 Dose: 25 mg Labetalol HCl (Trandate Iv*) 10 mg IV PUSH Q6H PRN PRN Reason: SBP > 180, DBP > 120 Last Admin: 01/04/17 18:27 Dose: 10 mg Lisinopril (Prinivil Tab*) 10 mg PO DAILY [facility] Last Admin: 01/05/17 07:39 Dose: 10 mg Ondansetron HCl (Zofran Inj*) 4 mg IV Q6H PRN PRN Reason: NAUSEA Vital Signs 01/04/17 01/04/17 01/04/17 11:27 11:30 11:39 Temperature Pulse Rate 87 79 Respiratory 22 22 24 Rate Blood Pressure 191/131 181/118 (mmHg) O2 Sat by Pulse 100 98 Oximetry 01/04/17 01/04/17 01/04/17 11:42 12:00 12:01 Temperature 98.6 F Pulse Rate 83 86 Respiratory 17 19 Rate Blood Pressure 173/120 (mmHg) O2 Sat by Pulse 99 99 Oximetry 01/04/17 01/04/17 01/04/17 12:30 13:00 13:17 Temperature Pulse Rate 76 79 82 Respiratory 20 20 28 Rate Blood Pressure 149/99 163/117 (mmHg) O2 Sat by Pulse 97 98 98 Oximetry 01/04/17 01/04/17 01/04/17 13:30 13:57 14:00 Temperature Pulse Rate 80 90 87 Respiratory 17 22 24 Rate Blood Pressure 161/114 167/115 (mmHg) O2 Sat by Pulse 98 93 98 Oximetry 01/04/17 01/04/17 01/04/17 14:10 14:30 15:00 Temperature Pulse Rate 84 81 75 Respiratory 22 18 22 Rate Blood Pressure 163/120 165/110 169/113 (mmHg) O2 Sat by Pulse 98 99 97 Oximetry 01/04/17 01/04/17 01/04/17 15:01 15:17 15:30 Temperature Pulse Rate 77 78 74 Respiratory 14 26 17 Rate Blood Pressure 156/113 151/111 (mmHg) O2 Sat by Pulse 98 98 98 Oximetry 01/04/17 01/04/17 01/04/17 15:34 15:42 15:44 Temperature 98.5 F Pulse Rate 72 Respiratory 16 23 Rate Blood Pressure 150/116 (mmHg) O2 Sat by Pulse 97 Oximetry 01/04/17 01/04/17 01/04/17 16:00 16:01 16:30 Temperature Pulse Rate 75 81 75 Respiratory 21 18 25 Rate Blood Pressure 167/119 168/118 (mmHg) O2 Sat by Pulse 97 98 97 Oximetry 01/04/17 01/04/17 01/04/17 17:00 17:01 17:30 Temperature Pulse Rate 76 80 77 Respiratory 21 25 21 Rate Blood Pressure 172/132 177/128 (mmHg) O2 Sat by Pulse 97 99 98 Oximetry 01/04/17 01/04/17 01/04/17 18:00 18:01 18:16 Temperature Pulse Rate 83 82 78 Respiratory 16 17 14 Rate Blood Pressure 176/128 174/128 (mmHg) O2 Sat by Pulse 97 96 99 Oximetry 01/04/17 01/04/17 01/04/17 18:24 18:30 18:31 Temperature Pulse Rate Respiratory 22 21 25 Rate Blood Pressure 183/122 142/99 145/98 (mmHg) O2 Sat by Pulse 95 97 97 Oximetry 01/04/17 01/04/17 01/04/17 19:00 19:01 19:30 Temperature Pulse Rate Respiratory 23 27 16 Rate Blood Pressure 149/97 161/100 (mmHg) O2 Sat by Pulse 97 96 98 Oximetry 01/04/17 01/04/17 01/04/17 19:50 20:00 20:01 Temperature Pulse Rate Respiratory 16 22 24 Rate Blood Pressure 149/104 (mmHg) O2 Sat by Pulse 95 89 Oximetry 01/04/17 01/04/17 01/04/17 20:30 20:44 21:00 Temperature 98.9 F Pulse Rate Respiratory 15 15 Rate Blood Pressure 160/115 161/110 (mmHg) O2 Sat by Pulse 97 99 Oximetry 01/04/17 01/04/17 01/04/17 21:01 21:30 22:00 Temperature Pulse Rate Respiratory 18 16 18 Rate Blood Pressure 159/106 152/106 (mmHg) O2 Sat by Pulse 100 98 95 Oximetry 01/04/17 01/04/17 01/04/17 22:01 22:30 23:00 Temperature Pulse Rate Respiratory 18 15 16 Rate Blood Pressure 145/90 130/79 (mmHg) O2 Sat by Pulse 97 99 99 Oximetry 01/04/17 01/04/17 01/05/17 23:01 23:30 00:00 Temperature 99 F Pulse Rate Respiratory 25 19 16 Rate Blood Pressure 149/109 156/106 (mmHg) O2 Sat by Pulse 98 97 97 Oximetry 01/05/17 01/05/17 01/05/17 00:01 00:09 01:00 Temperature Pulse Rate Respiratory 13 20 14 Rate Blood Pressure 157/106 (mmHg) O2 Sat by Pulse 97 97 96 Oximetry 01/05/17 01/05/17 01/05/17 01:01 02:00 02:01 Temperature Pulse Rate Respiratory 21 19 9 Rate Blood Pressure 155/107 (mmHg) O2 Sat by Pulse 95 97 95 Oximetry 01/05/17 01/05/17 01/05/17 02:04 03:00 03:01 Temperature Pulse Rate Respiratory 17 18 14 Rate Blood Pressure 159/116 (mmHg) O2 Sat by Pulse 99 99 Oximetry 01/05/17 01/05/17 01/05/17 03:42 04:00 04:01 Temperature Pulse Rate Respiratory 14 17 20 Rate Blood Pressure 166/104 142/105 (mmHg) O2 Sat by Pulse 96 99 96 Oximetry 01/05/17 01/05/17 01/05/17 04:18 05:00 05:01 Temperature 98.2 F Pulse Rate Respiratory 20 21 Rate Blood Pressure 141/98 (mmHg) O2 Sat by Pulse 95 95 Oximetry 01/05/17 01/05/17 01/05/17 06:00 06:01 06:04 Temperature Pulse Rate 85 78 73 Respiratory 22 16 Rate Blood Pressure 182/122 165/114 (mmHg) O2 Sat by Pulse 100 100 99 Oximetry 01/05/17 01/05/17 01/05/17 06:30 06:31 06:32 Temperature Pulse Rate Respiratory 16 15 16 Rate Blood Pressure 161/119 155/105 (mmHg) O2 Sat by Pulse 96 96 Oximetry 01/05/17 01/05/17 01/05/17 07:00 07:01 08:00 Temperature Pulse Rate 68 73 73 Respiratory 11 18 12 Rate Blood Pressure 161/118 163/118 (mmHg) O2 Sat by Pulse 96 98 98 Oximetry 01/05/17 01/05/17 01/05/17 08:01 09:00 09:01 Temperature Pulse Rate 70 71 77 Respiratory 17 19 18 Rate Blood Pressure 169/115 (mmHg) O2 Sat by Pulse 96 99 98 Oximetry 01/05/17 01/05/17 01/05/17 09:58 10:00 10:01 Temperature Pulse Rate 81 80 83 Respiratory 17 17 21 Rate Blood Pressure 174/133 166/118 (mmHg) O2 Sat by Pulse 99 98 98 Oximetry Oxygen Devices in Use Now: None Appearance: Young, F, laying in bed in NAD Eyes: No Scleral Icterus Ears/Nose/Mouth/Throat: Mucous Membranes Moist Neck: NL Appearance and Movements; NL JVP Respiratory: Symmetrical Chest Expansion and Respiratory Effort, Clear to Auscultation Cardiovascular: NL Sounds; No Murmurs; No JVD, RRR Abdominal: NL Sounds; No Tenderness; No Distention Lymphatic: No Cervical Adenopathy Extremities: No Edema Skin: No Rash or Ulcers Neurological: Alert and Oriented x 3 Result Diagrams: 01/02/17 17:25 01/05/17 05:59 Assess/Plan/Problems-Billing Assessment: Hypertensive emergency in a 36 yo F - Patient Problems (1) Hypertensive emergency Current Visit: Yes Comment: BPs improved but still high. Amlodpine 10 mg daily , will give additonal 10 mg of Lisinopril now for 20 mg total. Started Chlorthalidone 25 mg last night, continue daily. Renal US to be done as outpatient to evaluate for stenosis, can consider CTA as well if creatinine improves to evaluate for fibromuscular dyspplasia. Renin and aldosterone levels checked and pending. Echo showed severe LVH, no clear WMAs. CT head negative. (2) Renal dysfunction Current Visit: Yes Comment: Creatinine elevated, may be result of chronic untreated HTN. Stable. (3) DVT prophylaxis Current Visit: Yes Comment: SCDs Status and Disposition: Inpatient for close BP monitoring
[2017-01-06 06:42] LABS: Hematocrit 44 % (35-47); Mean Corpuscular HGB Conc 35 g/dl (31-36); Mean Corpuscular Hemoglobin 34 pg (27-31); Mean Corpuscular Volume 99 fL (80-97); Mean Platelet Volume 9 um3 (7.4-10.4); Red Blood Count 4.41 10^6/ul (4.0-5.4); Red Cell Distribution Width 15 % (10.5-15); White Blood Count 9.1 10^3/ul (3.5-10.8)
[2017-01-06 06:54] LABS: BUN/Creatinine Ratio 10.1 (8-20); Calcium 8.8 mg/dL (8.6-10.3); EGFR African American 50.6 (>60); EGFR Non-African American 39.4 (>60); Potassium 3.9 mmol/L (3.5-5.0)
[2017-01-06] MEDS: Chlorthalidone TAB* 50 MG PO SCH (08:53)
[2017-01-06] MEDS: amLODIPine TAB* 5 MG PO SCH (08:54)
[2017-01-06] MEDS ORDERED: Lisinopril TAB* 10 MG PO SCH ×2 (09:00)
--- NOTE | 2017-01-06 12:26 | DCNOTE ---
Patient seen early afternoon. Majority of BPs since AM medications have been improved, DBP in 90s-low 100s, systolics have been in 130s-140s. Patient feels well, no chest pain, SOB, PRATT. Says this is the best she has felt in years. On exam, RRR, s1 and s2 present, no m/g/r, abd soft, NTND, BS+ Plan to discharge home today on current regimen - Amlodipine 10 mg daily, Lisinopril 30 mg daily and Chlorthalidone 25 mg daily. Renin and aldosterone levels pending. Will need to arrange for outpatient renal US and possible CTA abd/pelvis if creatinine allows.
[2017-01-06 14:05] VITALS: BP 138/100
--- NOTE | 2017-01-06 19:01 | DS ---
CC: Yana Mcallister M.D. * DISCHARGE SUMMARY: DATE OF ADMISSION: 01/02/17 DATE OF DISCHARGE: 01/06/17 PRIMARY CARE PHYSICIAN: Yana Mcallister M.D. PRINCIPAL DISCHARGE DIAGNOSES: 1. Hypertensive emergency. 2. Chronic kidney disease stage 3. 3. Left ventricular hypertrophy. DISCHARGE MEDICATION REGIMEN: 1. Norvasc 10 mg by mouth daily. 2. Lisinopril 30 mg by mouth daily. 3. Chlorthalidone 25 mg by mouth daily. STUDIES DONE DURING HOSPITALIZATION: Chest x-ray, impression: No radiographic evidence for acute cardiopulmonary abnormality on this portable chest x-ray. Transthoracic echocardiogram, study is technically limited due to this patient' s body habitus, severe concentric LVH is observed and estimated ejection fraction is 60% to 65%, possible subtle hypokinesis of the inferior wall in apical views but not seen elsewhere, may be artifactual. Left ventricular diastolic filling pattern is consistent with pseudonormalization. Left atrium is mildly dilated. Aortic valve leaflets are mildly thickened. There is trace aortic regurgitation, trace-to- mild mitral regurgitation, yslic-en-zxhe tricuspid regurgitation. CT of the brain without contrast, impression: No acute intracranial pathology. HISTORY OF PRESENT ILLNESS AND HOSPITAL SUMMARY: Please see the full history and physical by Huong Landa NP for full details. Briefly, Ms. Summers is a 36- year- old female with no past medical history, who presented to the hospital after she had some vision changes and was evaluated at the [facility] and was found to have retinal hemorrhages. She was urgently sent to her primary care physician's office where her blood pressure was elevated at 240/180. She was immediately sent to the emergency department. Blood pressures were similar here. She was started on a labetalol drip as well as oral amlodipine. Her blood pressure decreased rather quickly and the patient developed some symptoms of numbness and tingling in the hands. The drip was weaned off and her symptoms resolved. Blood pressures remained significantly elevated on the following days and additional oral medications were added until she reached the current regimen, which seemed to control the systolic pressure fairly well, although diastolics were still elevated in the 90s to low 100s on discharge. Renin and aldosterone level were sent and are pending at this time. The patient should have a renal ultrasound done as an outpatient to evaluate for renal artery stenosis and if her creatinine allows, CT angiogram of the renal vasculature as well to evaluate for fibromuscular dysplasia. The patient was asymptomatic in the days leading up to discharge. It was felt that at this time , it was safe for her to be discharged home. However, she will need close followup and likely additional titration of medications over the next days to weeks. FOLLOWUP: For PCP to followup: 1. Renin and aldosterone levels. 2. Arrange for renal imaging. TIME SPENT: Total time spent on this discharge was 45 minutes. This is a summary of the hospitalization, please see the full medical record for further details. [id number] #: [id number] MTDD
[2017-01-07 13:00] LABS: Renin 4.4 ng/mL/h
== END 2017-01-06 13:10 | disposition home or self-care (01) | DRG 199 ==
LOC: ED 17:03 → ICU 18:28
PROVIDERS: ADMIT Internal Medicine; ATTEND Hospitalist
DX: I16.1 Hypertensive emergency (principal); I13.10 Hypertensive heart and chronic kidney disease without heart failure, with stage 1 through stage 4 chronic kidney disease, or unspecified chronic kidney disease; N18.3 Chronic kidney disease, stage 3 (moderate); F17.210 Nicotine dependence, cigarettes, uncomplicated; R74.8 Abnormal levels of other serum enzymes
CPT/HCPCS: 36415; 70450; 71010; 80048; 80053; 81003; 81015; 82088; 83605; 83735; 84244; 84436; 84443; 84484; 84702; 85025; 87086; 87641; 93005; 93306; A9270-GY